=== PATIENT | female | born 1995 | race Caucasian/White ===

== ENCOUNTER 2020-02-08 20:04 | Emergency (ER) | payer OTHER ==
[2020-02-08] MEDS ORDERED: ACETAMINOPHEN 325 MG TABLET PO ONE (20:50)
--- NOTE | 2020-02-08 20:52 | ER Document Report ---
ED Medical Screen (RME) - General Chief Complaint: Abdominal Pain Stated Complaint: ABDOMINAL PAIN Time Seen by Provider: 02/08/20 20:46 Mode of Arrival: Ambulatory Information source: Patient Notes: HPI; 24-year-old female presents to the emergency room complaining of right- sided abdominal pain and cramping for the past 10 days. Complains of nausea but no vomiting. No medications for symptoms. States she is actively trying to get . States she had a negative home test. LMP 9/ PE: Alert and oriented x3. Mild distress noted. Lungs: Clear to auscultation without rales, rhonchi, wheezes. Heart: Regular rate rhythm without murmurs, rubs, gallops. Unable to do full abdominal exam in triage. I have greeted and performed a rapid initial assessment of this patient. A comprehensive ED assessment and evaluation of the patient, analysis of test results and completion of the medical decision making process will be conducted by additional ED providers. I have specifically instructed the patient or family members with the patient to immediately return to any nursing staff should anything change in the patient's condition or with their chief complaint. TRAVEL OUTSIDE OF THE [place] IN LAST 30 DAYS: No - Related Data Allergies/Adverse Reactions: Penicillins Allergy (Verified 02/08/20 20:46) Physical Exam - Vital signs Vitals: Temp Pulse Resp BP Pulse Ox 98.5 F 82 17 123/73 97 02/08/20 20:15 02/08/20 20:15 02/08/20 20:15 02/08/20 20:15 02/08/20 20:15 Course - Vital Signs Vital signs: Temp Pulse Resp BP Pulse Ox 98.5 F 82 17 123/73 97 02/08/20 20:15 02/08/20 20:15 02/08/20 20:15 02/08/20 20:15 02/08/20 20:15
[2020-02-08 21:39] LABS: ABSOLUTE BASOPHILS # (AUTO) 0.1 10^3/uL (0.0-0.2); ABSOLUTE EOSINOPHILS # (AUTO) 0.2 10^3/uL (0.0-0.6); ABSOLUTE MONOCYTES (AUTO) 0.8 10^3/uL (0.1-1.4); ABSOLUTE NEUT (AUTO) 3.3 10^3/uL (1.7-8.2); BASOPHILS % (AUTO) 0.9 % (0-2); EOSINOPHILS % (AUTO) 2.3 % (0-6); HEMOGLOBIN 14.6 g/dL (12.0-15.5); LYMPHOCYTES % (AUTO) 40.9 % (13-45); MEAN CORPUSCULAR HEMOGLOBIN 30.2 pg (27.0-33.4); MEAN CORPUSCULAR HGB CONC 34.8 g/dL (32.0-36.0); MEAN CORPUSCULAR VOLUME 87 fl (80-97); MONOCYTES % (AUTO) 10.4 % (3-13); PLATELET COUNT 348 10^3/uL (150-450); RED BLOOD COUNT 4.84 10^6/uL (3.72-5.28); RED CELL DISTRIBUTION WIDTH 12.7 % (11.5-14.0); SEGMENTED NEUTROPHILS % (AUTO) 45.5 % (42-78); TOTAL CELLS COUNTED % (AUTO) 100 %; WHITE BLOOD COUNT 7.3 10^3/uL (4.0-10.5)
[2020-02-08 21:46] LABS: APPEARANCE,URINE SLIGHTLY-CLOUDY; BILIRUBIN,URINE NEGATIVE (NEGATIVE); COLOR,URINE YELLOW; GLUCOSE, URINE NEGATIVE (NEGATIVE); KETONES,URINE NEGATIVE (NEGATIVE); LEUKOCYTE ESTERASE,URINE SMALL (NEGATIVE); NITRITE,URINE NEGATIVE (NEGATIVE); PROTEIN,URINE NEGATIVE (NEGATIVE); UROBILINOGEN,URINE NEGATIVE mg/dL (<2.0)
[2020-02-08 21:55] LABS: ALBUMIN 4.9 g/dL (3.5-5.0); ALKALINE PHOSPHATASE 78 U/L (38-126); ANION GAP 10 (5-19); ASPARTATE AMINO TRANSFERASE 36 U/L (14-36); BILIRUBIN,DIRECT 0.3 mg/dL (0.0-0.4); BILIRUBIN,TOTAL 0.4 mg/dL (0.2-1.3); BLOOD UREA NITROGEN 11 mg/dL (7-20); CALCIUM 10.5 mg/dL (8.4-10.2); CARBON DIOXIDE 28 mmol/L (22-30); CHLORIDE 100 mmol/L (98-107); GLUCOSE 91 mg/dL (75-110); POTASSIUM 4.5 mmol/L (3.6-5.0); TOTAL PROTEIN 7.9 g/dL (6.3-8.2)
--- NOTE | 2020-02-08 22:13 | ER Document Report ---
ED GI/ - General Chief Complaint: Abdominal Pain Stated Complaint: ABDOMINAL PAIN Time Seen by Provider: 02/08/20 20:46 Primary Care Provider: [facility] [Provider Group] - Follow up in 1 week [facility] [Provider Group] - Follow up in 1 week Mode of Arrival: Ambulatory Notes: Patient is a 24-year-old female presents emergency department with a chief complaint of right lower abdominal abdominal pain that now radiates to right upper quadrant. Patient states that it is a cramping feeling. States that she has been cramping for the past 10 days. Patient was tested positive for chlamydia, and [facility] a couple weeks ago. Patient was instructed not to have sex for 2 weeks, but she ended up having sex a week after being treated. TRAVEL OUTSIDE OF THE [place] IN LAST 30 DAYS: No - Related Data Allergies/Adverse Reactions: Penicillins Allergy (Verified 02/08/20 20:46) Past Medical History - General Information source: Patient - Social History Smoking Status: Never Smoker Chew tobacco use (# tins/day): No Frequency of alcohol use: None Drug Abuse: None Family History: Reviewed & Not Pertinent Review of Systems - Review of Systems Notes: REVIEW OF SYSTEMS: CONSTITUTIONAL : Denies recent illness. Denies recent unintentional weight loss. Denies fever, chills, or sweats. EENT: Denies eye, ear, throat, or mouth pain, discharge, or symptoms. Denies nasal or sinus congestion. CARDIOVASCULAR: Denies chest pain. RESPIRATORY: Denies shortness of breath, cough, congestion, difficulty breath ing, or wheezing. GASTROINTESTINAL: Denies nausea, vomiting, and diarrhea. Denies constipation. See HPI. GENITOURINARY: Denies difficulty urinating, burning, blood in urine, urgency or frequency. FEMALE GENITOURINARY: See HPI. MUSCULOSKELETAL: Denies neck and back pain. Denies joint pain or swelling. SKIN: Denies rash, itchiness, or lesions HEMATOLOGIC : Denies easy bruising or bleeding. LYMPHATIC: Denies swollen, painful, enlarged glands. NEUROLOGICAL: Denies no numbness or tingling denies weakness. Denies headache. Denies altered mental status. Denies alteration in speech. PSYCHIATRIC: Denies stress, anxiety, alteration in sleep patterns, or depression. All other systems reviewed and negative. Physical Exam - Vital signs Vitals: Temp Pulse Resp BP Pulse Ox 98.5 F 82 17 123/73 97 02/08/20 20:15 02/08/20 20:15 02/08/20 20:15 02/08/20 20:15 02/08/20 20:15 - Notes Notes: PHYSICAL EXAMINATION: GENERAL: Appears well, healthy, well-nourished, no acute distress. HEAD: Normocephalic, atraumatic. EYES: PERRL, conjunctiva normal, all extraocular movements intact, sclera nonicteric ENT: Moist mucous membranes. NECK: Supple, no noticeable swelling, redness, rash. Normal range of motion. LUNGS: Equal breath sounds bilaterally and clear to auscultation. No wheezes rales or rhonchi. CARDIOVASCULAR: S1-S2, regular rate, regular rhythm. Radial pulses 2+, normal. ABDOMEN: Normoactive bowel sounds. Soft, nontender, no guarding, no rebound tenderness, and no masses palpated. EXTREMITIES: Normal strength and range of motion, no pitting or edema. No cyanosis. NEUROLOGICAL: Moves all extremities upon command. Strength 5/5 in all extremities. PSYCH: Normal mood, normal affect. SKIN: Warm, dry. No rash, lesions, ulcerations noted. Normal skin turgor. MORTAR WORKER: Cervical motion tenderness noted. Moderate amount of white discharge noted. Course - Re-evaluation Re-evalutation: 02/08/20 23:45 ELAINA Jimenez at bedside as naturalist for pelvic exam. Cervical motion tenderness noted. No adnexal tenderness noted. 02/09/20 00:31 Patient has 3+ bacteria noted on her wet mount. No epithelial cells noted due to specimen was sent. No trichomonas. No yeast noted. Patient does have fluid noted on her ultrasound. Will empirically treat patient for gonorrhea and chlamydia here in the emergency department. We will also treat her for pelvic inflammatory disease. She is in agreement with this plan. No suspicion for appendicitis. Patient is to follow-up with [facility] or her primary care provider in regards to this visit. Follow-up precautions were given. Verbal discharge instructions were given to the patient. They verb alized understanding. They are stable for discharge. - Vital Signs Vital signs: Temp Pulse Resp BP Pulse Ox 98.6 F 82 16 124/72 99 02/09/20 00:53 02/09/20 00:53 02/09/20 00:53 02/09/20 00:53 02/09/20 00:53 - Laboratory Result Diagrams: 02/08/20 20:50 02/08/20 20:50 Laboratory results interpreted by me: 02/08/20 02/08/20 20:50 21:03 Calcium 10.5 H ALT 50 H Ur Leukocyte Esterase SMALL H Discharge - Discharge Clinical Impression: Pelvic inflammatory disease (PID) Condition: Stable Disposition: HOME, SELF-CARE Additional Instructions: Your are being treated for pelvic inflammatory disease. You are being started on 2 different antibiotics and you need to take these until you finish them. Please return if you have worsening pain, persistent vomiting, spike a fever greater than 101F, or have any other symptoms that are concerning to you. Please follow closely with you primary care physician or your CRIMINALIST TECHNICIAN at your earliest ability. You were also treated for gonorrhea and chlamydia here in the emergency department. If your test are positive, you will be called by a nurse here in the hospital. If it is positive, please have your tested and treated. DO NOT HAVE SEX UNTIL YOU ARE COMPLETELY DONE WITH YOUR ANTIBIOTICS. Prescriptions: Doxycycline Hyclate 100 mg PO BID #28 tablet. Metronidazole [Flagyl 500 mg Tablet] 500 mg PO Q6H #28 tablet Referrals: [facility] [Provider Group] - Follow up in 1 week [facility] [Provider Group] - Follow up in 1 week
--- NOTE | 2020-02-08 23:23 | RADIOLOGY REPORT (SQ) ---
EXAM DESCRIPTION: US ABDOMEN LIMITED COMPLETED DATE/TME: 02/08/2020 22:11 CLINICAL HISTORY: 24 years, Female, RUQ pain COMPARISON: None. TECHNIQUE: Limited right upper quadrant ultrasound LIMITATIONS: None. FINDINGS: The liver is homogenous in echotexture without focal lesion. No gallstones or gallbladder wall thickening. CBD measures 3 mm. Visualized pancreas, abdominal aorta, inferior vena cava, right kidney unremarkable. No ascites IMPRESSION: Unremarkable exam copyright 2010 [employer]- All Rights Reserved
--- NOTE | 2020-02-08 23:29 | RADIOLOGY REPORT (SQ) ---
EXAM DESCRIPTION: US PELVIS TRANSVAGINAL COMPLETED DATE/TME: 02/08/2020 22:11 CLINICAL HISTORY: 24 years, Female, RLQ pelvic pain COMPARISON: None. TECHNIQUE: Endovaginal images of the pelvis were obtained. Grayscale imaging and Doppler imaging were performed. LIMITATIONS: None. FINDINGS: Uterus measures approximately 7.4 x 3.4 x 4.6 cm and appears within normal limits. Endometrial stripe thickness is 0.9 cm. Ovaries measure approximately 3.5 x 2.5 x 3.3 cm on the right and 2.6 x 2 x 2.2 cm on the left. There is a 1.7 cm simple cyst in the left adnexal region, which appears to be a paraovarian cyst. There is no suspicious adnexal mass. There is a small amount of free pelvic fluid. There is no evidence of ovarian torsion on Doppler imaging. IMPRESSION: Small amount of free pelvic fluid. There is a 1.7 cm left paraovarian cyst, which can be reassessed on 3 month follow-up to ensure stability. No suspicious adnexal mass. Endometrial stripe thickness is 0.9 cm. copyright 2011 [employer]- All Rights Reserved
[2020-02-09] LABS: BACTERIA (WET MOUNT) 3+ BACTERIA SEEN; RBCS (WET MOUNT) NO RBCS SEEN; T.VAGINALIS (WET MOUNT) NO TRICHOMONAS SEEN; WBCS (WET MOUNT) FEW WBCS SEEN; YEAST (WET MOUNT) NO YEAST SEEN
[2020-02-09] MEDS ORDERED: METRONIDAZOLE 500 MG TABLET PO ONE (00:34)
[2020-02-09] MEDS ORDERED: LIDOCAINE 1% INJ-PF (10 MG/ML) 30 ML SDV INJ ONE (00:34)
[2020-02-09] MEDS ORDERED: DOXYCYCLINE HYCLATE 100 MG TABLET PO ONE (00:34)
[2020-02-09] MEDS ORDERED: AZITHROMYCIN 250 MG TABLET PO ONE (00:34)
[2020-02-09] MEDS ORDERED: CEFTRIAXONE INJ 250 MG VIAL IM ONE (00:34)
[2020-02-09 00:53] VITALS: BP 124/72
[2020-02-09 01:43] LABS: CHLAM PCR NOT DETECTED (NOT DETECT)
== END 2020-02-09 00:53 | disposition home or self-care (01) ==
LOC: ER 20:04
DX: N73.9 Female pelvic inflammatory disease, unspecified (principal); N94.89 Other specified conditions associated with female genital organs and menstrual cycle; Z88.0 Allergy status to penicillin
CPT/HCPCS: 99285; 96372; 36415; 87210; 83690; 84703; 85025; 80053; 81001; 87491; 87591; 76705; 76830; 93976; J3490; J0696

== ENCOUNTER 2020-02-20 17:55 | Emergency (ER) | payer OTHER ==
[2020-02-20 18:09] VITALS: BP 133/71
== END 2020-02-20 19:42 | disposition left against medical advice (07) ==
LOC: ER 17:55
DX: Z53.21 Procedure and treatment not carried out due to patient leaving prior to being seen by health care provider (principal)